=== PATIENT | female | born 2005 ===

== ENCOUNTER 2025-07-11 13:21 | Emergency (ER) | payer BC, MEDICAID ==
[2025-07-11] MEDS ORDERED: Sodium Chloride 0.9% 10 ML Syringe FLUSH PRN ×2 (14:35→14:55)
[2025-07-11] MEDS ORDERED: Sodium Chloride 0.9% 2.5 ML Syringe FLUSH PRN ×2 (14:35→14:55)
[2025-07-11] MEDS ORDERED: Tenecteplase 25 MG KIT IVPUSH ONE (14:55)
[2025-07-11 15:08] LABS: BASOPHILS ABSOLUTE AUTO 0.05 K/uL (0.00-0.20); BASOPHILS PERCENT AUTO 0.4 % (0.0-1.0); EOSINOPHILS ABSOLUTE AUTO 0.03 K/uL (0.00-0.45); EOSINOPHILS PERCENT AUTO 0.3 % (0.0-6.0); IMMATURE GRAN ABSOLUTE AUTO 0.03 K/uL (0.00-0.05); IMMATURE GRAN PERCENT AUTO 0.3 % (0.0-0.4); LYMPHOCYTES ABSOLUTE AUTO 1.90 K/uL (1.00-4.80); LYMPHOCYTES PERCENT AUTO 16.1 % (24.0-44.0); MEAN PLATELET VOLUME 9.4 fL (9.4-12.3); MONOCYTES ABSOLUTE AUTO 0.62 K/uL (0.00-0.80); MONOCYTES PERCENT AUTO 5.3 % (0.0-8.0); NEUTROPHILS ABSOLUTE AUTO 9.14 K/uL (1.80-7.70); NEUTROPHILS PERCENT AUTO 77.6 % (41.0-71.0); NRBC ABSOLUTE 0.00 K/uL (0.00-0.02); NRBC PERCENT 0.0 /100WBC (0.0-0.2); PLATELET COUNT,PLT 236 K/uL (150-400); RED BLOOD CELL COUNT 5.09 M/uL (4.10-5.30); WHITE BLOOD CELL COUNT,WBC 11.77 K/uL (3.9-11.3)
[2025-07-11 15:20] LABS: INR 1.05 (0.86-1.11)
[2025-07-11 15:24] LABS: BLOOD UREA NITROGEN,BUN 12.0 mg/dL (7.0-18.0); CARBON DIOXIDE,CO2 26.9 mmol/L (21.0-32.0); CHLORIDE,CL 105.0 mmol/L (98-107); CREATININE 0.8 mg/dL (0.6-1.0); EST CRCL DRUG DOSING (CG) 108.17 mL/min; GLUCOSE RANDOM 91.0 mg/dL (74-106); POTASSIUM,K 3.5 mmol/L (3.5-5.1); SODIUM,NA 141.0 mmol/L (136-145)
[2025-07-11 15:26] LABS: ESTIMATED GFR 107.0 mL/min (>60)
== END 2025-07-11 21:18 | disposition home or self-care (01) ==
LOC: MW.ED 13:21
DX: S06.5XAA Traumatic subdural hemorrhage with loss of consciousness status unknown, initial encounter (principal); S02.40FA Zygomatic fracture, left side, initial encounter for closed fracture; Z88.0 Allergy status to penicillin; Y04.8XXA Assault by other bodily force, initial encounter
CPT/HCPCS: 36415; 70450; 70486; 72125; 73030; 80048; 85025; 85610; 96374; 99284; A9270; J2270; 99283